=== PATIENT | female | born 1990 | race Caucasian/White ===

== ENCOUNTER 2025-08-23 13:39 | Outpatient (CLI) | payer BC, SELFPAY ==
--- NOTE | 2025-08-23 14:00 | CRLHL7_ITS ---
For Patients: As a result of the Century Cures Act, medical imaging exams and procedure reports are released immediately into your electronic medical record. You may view this report before your referring provider. If you have questions, please contact your health care provider. OBSTETRICAL ULTRASOUND TRANSVAGINAL CLINICAL INDICATION: Dating and viability. LMP: 06/22/2025 SABAS by LMP: 03/29/2026 Gestational age: 8 weeks 6 days PREVIOUS ULTRASOUND: No TECHNIQUE: Real-time st-scale imaging of the fetus was performed transvaginal. Transvaginal imaging was performed for better visualization of the endometrium and ovaries. FINDINGS: CRL: 1.7 cm, 8 weeks 0 days; SABAS 04/04/2026 heart rate: 180 BPM Gestational sac: 2.5 cm, appears within normal limits Yolk sac: 4.5 mm, appears within normal limits Right ovary: 3.6 x 2.0 x 2.0 cm Left ovary: 3.3 x 2.3 x 2.7 cm, CL IMPRESSION: 1. Single living intrauterine measures 8 weeks 0 days with sonographic due date of 04/04/2026. 2. Subchorionic hemorrhage measures 2.3 x 1.3 x 0.3 cm. 3. Simple cyst of left ovary measures 1.7 x 1.4 x 1.7 cm. 4. Lower uterine segment myometrial cyst measures 1.4 x 1.2 x 1.2 cm. SUKHWINDER MCKENNA M.D. Diagnostic Radiologist [email or web address] Transcribed: 5:[address]/Dictated by: Sukhwinder Mckenna MD @ 08/23/2025 4:05:00 PM (Electronically Signed)
== END 2025-08-23 13:40 | disposition home or self-care (01) ==
LOC: US 13:40
PROVIDERS: Visit Provider Advanced Practice Midwife
DX: O20.9 Hemorrhage in early pregnancy, unspecified (principal); O34.81 Maternal care for other abnormalities of pelvic organs, first trimester; N83.291 Other ovarian cyst, right side; Z3A.08 8 weeks gestation of pregnancy; Z34.81 Encounter for supervision of other normal pregnancy, first trimester
CPT/HCPCS: 76817

== ENCOUNTER 2025-08-23 16:03 | Outpatient (CLI) | payer BC, SELFPAY | END 2025-08-23 16:04 | disposition home or self-care (01) | LOC: NFLDREF 16:04 | PROVIDERS: Visit Provider Advanced Practice Midwife | DX: Z34.81 Encounter for supervision of other normal pregnancy, first trimester (principal); Z3A.08 8 weeks gestation of pregnancy | CPT/HCPCS: 83020; 83021; 84443; 85660; 86592; 86703; 86704; 86706; 86762; 86787; 86803; 86850; 86900; 86901; 87086; 87340; 87491; 87591 ==